=== PATIENT | female | born 1995 | race Caucasian/White ===

== ENCOUNTER → 2024-01-02 13:03 | Day surgery (SDC) | payer OTHER, SELFPAY ==
[2024-01-02 13:18] VITALS: BP 120/76; PULSE 80; RESP 18; O2SAT 98; BMI 36.3
--- NOTE | 2024-01-02 13:47 | EXP.TILT ---
Findings:: PROCEDURE: Tilt Table Test REQUESTING PROVIDER: Guanako Wray APRN INDICATION: Recurrent lightheadedness, near syncope and syncope BETA BLOCKERS: None PRE-TEST VITAL SIGNS (supine position): HR 58 and sinus rhythm, BP 119/68, O2 sats 97% PROCEDURE SUMMARY: Patient was prepped per protocol, IV started, connected to heart, blood pressure and oxygen monitors, and safety straps applied. She was then tilted upright at 70 degrees for a total of 27 minutes. She denied any symptoms during the test and had no lightheadedness, dizziness, near syncope or syncope. Her heart rate increased from 58 bpm supine to 72 bpm upon being tilted upright and peaked at 84 bpm after 15 minutes. She remained in a sinus rhythm throughout. Her highest BP was 122/71 which occurred immediately after being placed upright. Her lowest BP was 104/73 which occurred after being upright for 5 minutes. This 15 mmHg drop in systolic BP after being upright for 5 minutes, was not associated with any symptoms. Oxygen saturation remained in the high 90s to 100% throughout the test. CONCLUSIONS: Unremarkable upright tilt table test.
== END | disposition home or self-care (01) ==
PROVIDERS: PCP Internal Medicine; Visit Provider Registered Nurse
DX: R55 Syncope and collapse (principal)
CPT/HCPCS: 93660